=== PATIENT | male | born 2000 | race Caucasian/White ===

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

== ENCOUNTER 2023-01-19 16:20 | Emergency (ER) | payer BC, SELFPAY ==
--- OUTSIDE RECORDS SUMMARY | 2023-01-19 16:22 | XMS REPORT | Continuity of Care Document ---
Author Name Unknown Address [address] [place] [address] [facility] [address] [place] [address] Care Team Providers Care Clin Application Specialist Name Role Phone Ludin Celestin Attending Clinician Unavailable Kathy Lee Attending Clinician Antoine Merino MD Attending Clinician [phone] Payers Payer Name Policy Type Policy Number Effective Date Expirati on Date Source [place] [address] [id number] 2021 00:00:00 [facility] Problems Condition Name Condition Details Condition Category Status Onset Date Resolution Date Last Treatment Date Treating Clinician Comments Source [id number] ADRY (generaliz ed anxiety disorder) Problem [facility] [id number] Bipolar 1 disorder Problem [facility] [id number] Body mass index [BMI] 40.0-44.9, adult Problem [facility] [id number] Morbid (severe) obesity due to excess calories Problem [facility] Allergies, Adverse Reactions, Alerts Allergy Name Allergy Type Status Severity Reaction(s) Onset Date Inactive Date Treating Clinician Comments Source NO KNOWN ALLERGIE S Drug Class Active [facility] Social History Social Habit Start Date Stop Date Quantity Comments Source History of Tobacco Use [facility] Sex Assigned At [facility] Exposure to SARS-CoV-2 (event) Not sure [facility] Smoking Status Start Date Stop Date Source Unknown if ever smoked [facility] Never Smoker [facility] Medications Ordered Medication Name Filled Medication Name Start Date Stop Date Current Medication? Ordering Clinician Indication Dosage Frequency Signature (SIG) Comments Components Source Divalproex Sodium ER 500 MG Divalproex Sodium ER 500 MG 2-0 7-07 00:00: 00 No 2{table t} QD Divalproex Sodium ER 500 MG Ondansetron 4 MG Ondansetron 4 MG 2-0 4-28 00:00: 00 No 1{table t_on_ e_tongu e_and_a llow_to _dissol ve} Ondansetro n 4 MG Ondansetron 4 MG Ondansetron 4 MG 2-0 4-28 00:00: 00 No 1{table t_on_ e_tongu e_and_a llow_to _dissol ve} Ondansetro n 4 MG Ondansetron 4 MG Ondansetron 4 MG 2-0 4-28 00:00: 00 No 1{table t_on_ e_tongu e_and_a llow_to _dissol ve} Ondansetro n 4 MG Ondansetron 4 MG Ondansetron 4 MG 2-0 4-28 00:00: 00 No 1{table t_on_ e_tongu e_and_a llow_to _dissol ve} Ondansetro n 4 MG QUEtiapine Fumarate 300 MG QUEtiapine Fumarate 300 MG No QUEtiapine Fumarate 300 MG Divalproex Sodium ER 500 MG Divalproex Sodium ER 500 MG No Divalproex Sodium ER 500 MG Divalproex Sodium ER 500 MG Divalproex Sodium ER 500 MG No Divalproex Sodium ER 500 MG QUEtiapine Fumarate 300 MG QUEtiapine Fumarate 300 MG No QUEtiapine Fumarate 300 MG Divalproex Sodium ER 500 MG Divalproex Sodium ER 500 MG No Divalproex Sodium ER 500 MG QUEtiapine Fumarate 300 MG QUEtiapine Fumarate 300 MG No QUEtiapine Fumarate 300 MG QUEtiapine Fumarate 300 MG QUEtiapine Fumarate 300 MG No QUEtiapine Fumarate 300 MG Abilify 10 MG Abilify 10 MG No 1{table t} QD Abilify 10 MG hydrOXYzine HCl 25 MG hydrOXYzine HCl 25 MG No 1{table t_at_be dtime_a s_neede d} QD hydrOXYzin e HCl 25 MG Divalproex Sodium ER 500 MG Divalproex Sodium ER 500 MG No 1{table t} QD Divalproex Sodium ER 500 MG hydrOXYzine HCl 25 MG hydrOXYzine HCl 25 MG No 1{table t_at_be dtime_a s_neede d} QD hydrOXYzin e HCl 25 MG Abilify 10 MG Abilify 10 MG No 1{table t} QD Abilify 10 MG QUEtiapine Fumarate 300 MG QUEtiapine Fumarate 300 MG No QUEtiapine Fumarate 300 MG Divalproex Sodium ER 500 MG Divalproex Sodium ER 500 MG No Divalproex Sodium ER 500 MG ARIPiprazol e 10 MG ARIPiprazol e 10 MG No ARIPiprazo le 10 MG Divalproex Sodium ER 500 MG Divalproex Sodium ER 500 MG No 2{table t} QD Divalproex Sodium ER 500 MG Vital Signs Vital Name Observation Time Observation Value Comments S ource height 2021-08-13 16:30:00 66 [in_i] Commo n [facility] weight 2021-08-13 16:30:00 248.2 [lb_av] Co mmon [facility] temperature 2021-08-13 16:30:00 97.0 [degF] Com mon [facility] bmi 2021-08-13 16:30:00 40.06 kg/m2 Comm on [facility] oximetry 2021-08-13 16:30:00 96 % Commo n [facility] respiratory rate 2021-08-13 16:30:00 17 /min Common [facility] blood pressure systolic 2021-08-13 16:30:00 124 mm[Hg] Common [facility] blood pressure diastolic 2021-08-13 16:30:00 59 mm[Hg] Common [facility] height 2021-06-04 15:30:00 66 [in_i] Commo n [facility] weight 2021-06-04 15:30:00 242.2 [lb_av] Co [facility] bmi 2021-06-04 15:30:00 39.09 kg/m2 Comm on [facility] weight 2020-08-26 16:10:00 242.2 [lb_av] Co [facility] temperature 2020-08-26 16:10:00 97.3 [degF] Com mon [facility] bmi 2020-08-26 16:10:00 39.09 kg/m2 Comm on [facility] oximetry 2020-08-26 16:10:00 98 % Commo n [facility] respiratory rate 2020-08-26 16:10:00 16 /min [facility] blood pressure systolic 2020-08-26 16:10:00 114 mm[Hg] [facility] blood pressure diastolic 2020-08-26 16:10:00 56 mm[Hg] [facility] height 2020-08-26 16:10:00 66 [in_i] Commo n [facility] Systolic blood pressure 2019-06-13 03:03:16 108 mm[Hg] [facility] Diastolic blood pressure 2019-06-13 03:03:16 57 mm[Hg] [facility] Heart rate 2019-06-13 03:03:16 71 /min [facility] Body temperature 2019-06-13 03:03:16 36.67 Gudelia [facility] Respiratory rate 2019-06-13 03:03:16 16 /min [facility] Oxygen saturation in Arterial blood by Pulse oximetry 2019-06-13 03:03:16 98 /min [facility] Body weight 2019-06-13 01:08:[address] [facility] Procedures Procedure Date / Time Performed Performing Clinician Source CORONAVIRUS COVID-19 TESTING 2019-06-13 02:22:00 Antoine Merino [facility] CBC WITH DIFFERENTIAL 2019-06-13 02:04:00 Tesha Merino [facility] NOTICE OF PRIVACY PRACTICES 2019-06-13 01:04:54 Doctor Unassigned, [place] [facility] CONSENT/REFUSAL FOR DIAGNOSIS AND TREATMENT 2019-06-13 01:04:14 Doctor Unassigned, [place] [facility] Encounters Start Date/Time End Date/Time Encounter Type Admission Type Attending [facility] Facility Care Department Encounter ID Source 2021-08-13 16:22:01 Outpatient CelestinRossyh [facility] [id number] [facility] 2021-07-20 11:43:02 Outpatient CelestinRossyh [facility] [id number] [facility] 2021-06-04 13:39:02 Outpatient Celestin, Ludin [facility] ST[facility] [id number] [facility] 2021-03-04 13:39:16 Outpatient CelestinRossyh [facility] ST[facility] [id number] [facility] 2021-03-04 13:28:23 Outpatient [facility] [id number] [facility] 2021-08-13 00:00:00 2021-08-13 00:00:00 PREV VISIT EST AGE 18-39 [facility] ST[facility] [id number] [facility] 2021-06-29 00:00:00 2021-06-29 00:00:00 (TEL) [facility] ST[facility] [id number] [facility] 2021-06-04 00:00:00 2021-06-04 00:00:00 OFFICE VISIT ESTAB PT LEVEL 3 [facility] [id number] [facility] 2021-06-04 00:00:00 2021-06-04 00:00:00 (TEL) [facility] [id number] [facility] 2020-08-26 00:00:00 2020-08-26 00:00:00 PREV VISIT NEW AGE 18-39 [facility] [id number] [facility] 2019-06-12 20:14:12 2019-06-12 22:17:00 Emergency Kathy Logan [place] [facility] [id number] [facility] 2019-06-12 20:03:00 2019-06-12 20:03:00 Emergency X [facility] ERT [id number] [facility] Results Test Description Test Time Test Comments Results Result Co mments Source [facility] WITH [id number] 02:16:00* Test Item Value Reference Range Interpretation Comme nts WBC (test code = 6690-2) See_Comment [Automated messa ge] The system which generated this result transmitted reference range: 4.50 - 13.50 10*3/?L. The reference range was not used to interpret this result as normal/abnormal. RBC (test code = 789-8) See_Comment [Automated Calpiana ge] The system which generated this result transmitted reference range: 4.50 - 5.30 10*6/?L. The reference range was not used to interpret this result as normal/abnormal. HGB (test code = 718-7) 15.6 g/dL 13-16 HCT (test code = 4544-3) 46.5 % 37-49 MCV (test code = 787-2) 88.4 fL 78-95 MCH (test code = 785-6) 29.7 pg 26-32 MCHC (test code = 786-4) 33.5 g/dL 32-36 RDW-SD (test code = 02660-2) 40.6 fL 38.5-49 RDW-CV (test code = 788-0) 12.6 % 11.5-14 PLT (test code = 777-3) See_Comment [Automated Calpiana ge] The system which generated this result transmitted reference range: 133 - 320 10*3/?L. The reference range was not used to interpret this result as normal/abnormal. MPV (test code = 23890-8) 10.3 fL 9.3-12.9 NRBC/100 WBC (test code = 0033882648) See_Comment [Automated me ssage] The system which generated this result transmitted reference range: 0.0 - 10.0 /100 WBCs. The reference range was not used to interpret this result as normal/abnormal. NRBC x10^3 (test code = 7806041434) <0.01 See_Comment [Automated messa ge] The system which generated this result transmitted reference range: 10*3/?L. The reference range was not used to interpret this result as normal/abnormal. GRAN MAT (NEUT) % (test code = 770-8) 60.3 % IMM GRAN % (test code = 9536789940) 0.50 % LYMPH % (test code = 736-9) 26.6 % MONO % (test code = 5905-5) 9.6 % EOS % (test code = 713-8) 2.3 % BASO % (test code = 706-2) 0.7 % GRAN MAT x10^3(ANC) (test code = 2577347355) 4.38 10*3/uL 1.5-10.3 IMM GRAN x10^3 (test code = 0059700894) 0.04 10*3/uL 0-0.06 LYMPH x10^3 (test code = 731-0) 1.94 10*3/uL 0.7-7.4 MONO x10^3 (test code = 742-7) 0.70 10*3/uL 0-0.5 H EOS x10^3 (test code = 711-2) 0.17 10*3/uL 0-0.4 BASO x10^3 (test code = 704-7) 0.05 10*3/uL 0-0.1 Lab Interpretation (test code = 69617-7) Abnormal [facility]
[2023-01-19] MEDS ORDERED: IPRATROPIUM BROM 0.5MG/2.5ML ONE (17:13)
[2023-01-19] MEDS ORDERED: ALBUTEROL 2.5 MG/3 ML NEB SOL ONE (17:13)
[2023-01-19 17:36] LABS: SARS-COV-2 RT PCR NEGATIVE (NEGATIVE)
--- NOTE | 2023-01-19 17:59 | EDPHYS ---
Physician Documentation [facility] Name: Oliver Walker Age: 22 yrs Sex: Male : 2000 Arrival Date: 01/19/2023 Time: 16:20 Bed 6 Private MD: ED Physician Berny James HPI: 01/19 16:57 This 22 yrs old Male presents to ER via Ambulatory with complaints of Flu Symptoms. kb 16:57 Patient is a 22-year-old male who presents for cough, congestion, sore throat and kb chills that started 2 days ago. Denies fever.. Historical: - Allergies: 16:47 No Known Drug Allergies; cm10 - PMHx: 16:47 Asthma; Bipolar disorder; Migraines; Pneumonia; cm10 - Immunization history:: Adult Immunizations unknown. - Social history:: Smoking status: unknown Patient uses street drugs, marijuana. ROS: 16:58 Abdomen/GI: Negative for abdominal pain, nausea, vomiting, diarrhea, and constipation, kb 16:58 Constitutional: Positive for chills, 16:58 ENT: Positive for rhinorrhea, sinus congestion, sore throat, 16:58 Respiratory: Positive for cough, 16:58 All other systems are negative, Exam: 16:58 Constitutional: This is a well developed, well nourished patient who is awake, alert, kb and in no acute distress. Head/Face: Normocephalic, atraumatic. ENT: Moist Mucous membranes Cardiovascular: Regular rate Respiratory: Respirations even and unlabored. No increased work of breathing. Talking in full sentences Skin: Warm, dry with normal turgor. Normal color. MS/ Extremity: Pulses equal, no cyanosis. Neurovascular intact. Full, normal range of motion. Neuro: Awake and alert, GCS 15, oriented to person, place, time, and situation. Moves all extremities. Normal gait. Vital Signs: 16:47 BP 131 / 69; Pulse 80; Resp 18; Temp 98.4; Pulse Ox 98% ; Weight 102.06 kg; Height 5 cm10 ft. 4 in. ; Pain 7/10; 18:05 BP 137 / 81; Pulse 99; Resp 18; Temp 98.3(TE); Pulse Ox 98% on R/A; nj1 16:47 Body Mass Index 38.62 (102.06 kg, 162.56 cm) cm10 16:47 Pain Scale: Adult cm10 MDM: 16:23 Patient medically screened. kb 16:58 Differential Diagnosis: Other Flu, COVID, RSV, URI. Data reviewed: vital signs, nurses kb notes. 17:58 Counseling: I had a detailed discussion with the patient and/or guardian regarding the kb historical points, exam findings, and any diagnostic results supporting the discharge/admit diagnosis, lab results, the need for outpatient follow up, a family practitioner, to return to the emergency department if symptoms worsen or persist or if there are any questions or concerns that arise at home. 01/19 16:26 Order name: COVID-19/FLU A+B/RSV; Complete Time: 17:38 cm10 Administered Medications: 17:05 Drug: Albuterol Inhalation 2.5 mg Inhalation once Route: Inhalation; nj1 18:05 Follow up: Response: No adverse reaction nj1 17:05 Drug: Ipratropium Inhalation Aerosol 0.5 mg Inhalation once Route: Inhalation; nj1 18:05 Follow up: Response: No adverse reaction nj1 Disposition: 17:25 I was immediately available on-site in the Emergency Department for consultation in the ms3 care of the patient. Disposition Summary: 01/19/23 17:58 Discharge Ordered Notes: Location: Home kb Condition: Stable kb Diagnosis - Acute bronchitis, unspecified kb Followup: kb - With: Emergency Department - When: As needed - Reason: Worsening of condition Followup: kb - With: Private Physician - When: 2 - 3 days - Reason: Recheck today's complaints, Continuance of care, Re-evaluation by your physician Discharge Instructions: - Discharge Summary Sheet kb - Acute Bronchitis, Adult, [id number] kb Forms: - Medication Reconciliation Form kb - Thank You Letter kb - Antibiotic Education kb - Prescription Opioid Use kb - Patient Portal Instructions kb - Leadership Thank You Letter kb Prescriptions: - albuterol sulfate 90 mcg/actuation Inhalation HFA Aerosol Inhaler - inhale 2 puff INHALATION route every 4 to 6 hours As needed; 1 unit; Refills: kb 0, Product Selection Permitted - Prednisone 20 mg Oral Tablet - take 1 tablet ORAL route once daily for 5 days; 5 tablet; Refills: 0, Product kb Selection Permitted Signatures: Dispatcher [employer] Sara Felix FNP-C FNP-Ckb Sims, Marcus, DO DO ms3 Janet Sidhu, RN RN nj1 Donna Odonnell, RN RN cm10
--- NOTE | 2023-01-19 17:59 | ER ---
Nurse's Notes [facility] Name: Oliver Walker Age: 22 yrs Sex: Male : 2000 Arrival Date: 01/19/2023 Time: 16:20 Bed 6 Private MD: Diagnosis: Acute bronchitis, unspecified Presentation: 01/19 16:47 Chief complaint: Patient states: Cough, congestion, sore throat and chills X 2days. cm10 Coronavirus screen: Vaccine status: Patient reports being unvaccinated. Client denies travel out of the [place] in the last 14 days. Ebola Screen: Patient denies travel to an Ebola-affected area in the 21 days before illness onset. No symptoms or risks identified at this time. Initial Sepsis Screen: Does the patient meet any 2 criteria? No. Patient's initial sepsis screen is negative. Does the patient have a suspected source of infection? No. Patient's initial sepsis screen is negative. Risk Assessment: Do you want to hurt yourself or someone else? Patient reports no desire to harm self or others. Onset of symptoms was January 19, 2023. 16:47 Method Of Arrival: Ambulatory cm10 16:47 Acuity: PASTORA 3 cm10 Historical: - Allergies: 16:47 No Known Drug Allergies; cm10 - PMHx: 16:47 Asthma; Bipolar disorder; Migraines; Pneumonia; cm10 - Immunization history:: Adult Immunizations unknown. - Social history:: Smoking status: unknown Patient uses street drugs, marijuana. Screenin:05 [facility] ED Fall Risk Assessment (Adult) Score/Fall Risk Level 0 - 2 = Low Risk nj1 Oriented to surroundings, Maintained a safe environment, Hourly rounding (assess needs \T\ fall precautionary measures) done. Abuse screen: Denies threats or abuse. Denies injuries from another. Nutritional screening: No deficits noted. Tuberculosis screening: No symptoms or risk factors identified. Assessment: 17:04 General: Appears in no apparent distress. comfortable, Behavior is calm, cooperative, nj1 appropriate for age. Pain: Denies pain. Neuro: Level of Consciousness is awake, alert, obeys commands, Oriented to person, place, time, situation. Cardiovascular: Patient's skin is warm and dry. Respiratory: Reports cough that is non-productive, persistent Airway is patent Respiratory effort is even, unlabored, Breath sounds are clear in left upper lobe and left lower lobe Breath sounds with wheezes in right upper lobe, right middle lobe and right lower lobe inspiratory. 18:05 Reassessment: Patient appears in no apparent distress at this time. Patient and/or nj1 family updated on plan of care and expected duration. Pain level reassessed. Patient is alert, oriented x 3, equal unlabored respirations, skin warm/dry/pink. Patient denies pain at this time. Vital Signs: 16:47 BP 131 / 69; Pulse 80; Resp 18; Temp 98.4; Pulse Ox 98% ; Weight 102.06 kg; Height 5 cm10 ft. 4 in. ; Pain 7/10; 18:05 BP 137 / 81; Pulse 99; Resp 18; Temp 98.3(TE); Pulse Ox 98% on R/A; nj1 16:47 Body Mass Index 38.62 (102.06 kg, 162.56 cm) cm10 16:47 Pain Scale: Adult cm10 ED Course: 16:23 Patient arrived in ED. mg5 16:23 Sara Lopez FNP-C is PHCP. kb 16:23 Berny James DO is Attending Physician. kb 16:47 Arm band placed on Patient placed in an exam room, on a stretcher. cm10 16:49 Triage completed. cm10 16:55 Janet Sidhu, ARETHA is Primary Nurse. nj1 17:07 Patient has correct armband on for positive identification. Bed in low position. Call nj1 light in reach. Provided Education on: call light, fall precautions. 18:12 No provider procedures requiring assistance completed. Patient did not have IV access ld1 during this emergency room visit. Administered Medications: 17:05 Drug: Albuterol Inhalation 2.5 mg Inhalation once Route: Inhalation; nj1 18:05 Follow up: Response: No adverse reaction nj1 17:05 Drug: Ipratropium Inhalation Aerosol 0.5 mg Inhalation once Route: Inhalation; nj1 18:05 Follow up: Response: No adverse reaction nj1 Medication: 18:12 VIS not applicable for this client. ld1 Outcome: 17:58 Discharge ordered by . kb 18:12 Discharged to home ambulatory, ld1 18:12 Condition: stable 18:12 Discharge instructions given to patient, Instructed on discharge instructions, follow up and referral plans. Demonstrated understanding of instructions, follow-up care, 18:12 Patient left the ED. ld1 Signatures: Sara Lopez, CHANTALE CHOW-Esthela Dumont RN RN ld1 Janet Sidhu RN RN nj1 Donna Odonnell RN RN cm10 Petra Baker 5
[2023-01-19 21:00] VITALS: BP 131/69; TEMP 98.4; O2SAT 98
== END 2023-01-19 18:12 | disposition home or self-care (01) ==
LOC: ER 16:20
DX: J20.9 Acute bronchitis, unspecified (principal); Z11.52 Encounter for screening for COVID-19
CPT/HCPCS: 0241U; J7613; J7644